=== PATIENT | male | born 2000 | race Two or more races ===

== ENCOUNTER 2022-08-01 15:13 | Emergency (ER) | payer OTHER ==
[~2022-08-01] VITALS: Ht 177.8 cm; Wt 63.3 kg
[2022-08-01] MEDS ORDERED: IBUPROFEN 600 MG TAB PO ONE (18:30)
[2022-08-01 19:30] VITALS: BP 109/73
== END 2022-08-01 19:57 | disposition home or self-care (01) ==
LOC: ER 15:13
DX: S00.83XA Contusion of other part of head, initial encounter (principal); S13.4XXA Sprain of ligaments of cervical spine, initial encounter; S43.402A Unspecified sprain of left shoulder joint, initial encounter; S53.402A Unspecified sprain of left elbow, initial encounter; V89.0XXA Person injured in unspecified motor-vehicle accident, nontraffic, initial encounter; Y93.89 Activity, other specified; Y92.89 Other specified places as the place of occurrence of the external cause; Y99.8 Other external cause status
CPT/HCPCS: 70450; 72125; 73030; 73080